=== PATIENT | female | born 2000 | race Two or more races ===

== ENCOUNTER 2022-07-13 15:27 | Outpatient (CLI) | payer OTHER | END 2022-07-13 15:37 | disposition home or self-care (01) | LOC: PPH VACUNA 15:27 | PROVIDERS: ATTEND Emergency Medicine Pediatric Emergency Medicine | DX: Z23 Encounter for immunization (principal) ==

== ENCOUNTER 2022-07-28 14:53 | Outpatient (CLI) | payer OTHER | END 2022-07-28 15:03 | disposition home or self-care (01) | LOC: PPH VACUNA 14:53 | PROVIDERS: ATTEND Emergency Medicine Pediatric Emergency Medicine | DX: Z23 Encounter for immunization (principal) ==